=== PATIENT | male | born 1945 | race Caucasian/White ===

== ENCOUNTER 2019-03-30 08:36 | Day surgery (SDC) | payer MEDICARE, BC ==
[2019-03-23 16:03] LABS: BASOPHILS # (AUTO) 0.1 X10'3 (0-0.2); BASOPHILS % (AUTO) 1.2 % (0-1); EOSINOPHILS # (AUTO) 0.1 X10'3 (0-0.9); EOSINOPHILS % (AUTO) 1.6 % (0-6); LYMPHOCYTES # (AUTO) 1.8 X10'3 (1.1-4.8); LYMPHOCYTES % (AUTO) 23.4 % (21-51); MEAN CORPUSCULAR HEMOGLOBIN 31.6 PG (27.0-31.0); MEAN CORPUSCULAR HGB CONC 33.8 g/dL (33.0-36.5); MEAN CORPUSCULAR VOLUME 93.7 FL (78-98); MEAN PLATELET VOLUME 8.2 FL (7.4-10.4); MONOCYTES # (AUTO) 1.1 X10'3 (0-0.9); MONOCYTES % (AUTO) 14.9 % (2-12); NEUTROPHILS # (AUTO) 4.5 X10'3 (1.8-7.7); NEUTROPHILS % (AUTO) 58.9 % (42-75); PRE OP HEMATOCRIT 44.5 % (42.0-52.0); PRE OP PLATELET COUNT 317 X10'3 (140-440); RED BLOOD COUNT 4.75 X10'6 (4.70-6.10); RED CELL DISTRIBUTION WIDTH 14.9 % (11.5-14.5)
[2019-03-23 16:20] LABS: ALBUMIN 3.5 G/DL (3.4-5.0); ALBUMIN/GLOBULIN RATIO 0.7 (1.1-1.5); ALKALINE PHOSPHATASE 66 IU/L (46-116); BLOOD UREA NITROGEN 29 MG/DL (7-18); BUN/CREATININE RATIO 16.9 (5.4-32.0); CALCIUM 8.3 MG/DL (8.5-10.1); CHLORIDE 106 MMOL/L (99-107); CREATININE 1.72 MG/DL (0.60-1.10); PRE OP ALT 40 U/L (30-65); PRE OP ANION GAP 8 (8-16); PRE OP AST 28 U/L (10-37); PRE OP BILIRUB, TOTAL 0.4 MG/DL (0.0-1.0); PRE OP GLUCOSE 91 MG/DL (70-104); PRE OP POTASSIUM 3.7 MMOL/L (3.4-5.1); PRE OP SODIUM 139 MMOL/L (135-145); TOTAL PROTEIN 8.2 G/DL (6.4-8.2); eGFR 39 ML/MIN
[~2019-03-30] VITALS: Ht 188 cm; Wt 97.3 kg
[~2019-03-30 08:36] MED LIST: CLINDAMYCIN/D5W 900mg/50ml 50 ML IV ONE; DOXA1TAB2 PO; LEVO150T8 PO; LIDOcaine 0.5% (5mg/ml) 50ml vial ONE; LOSA25TA41 PO; famotidine 20mg tablet PO ONE; ringers solution, lacted 1,000 ML IV SCH
[2019-03-30] MEDS ORDERED: ESOM20CA PO (09:13)
[2019-03-30] MEDS ORDERED: BUPIVAcaine/PF 2.5mg/ml (0.25%) 10ml vial ONE (09:48)
[2019-03-30 10:09] VITALS: BP 156/78
[2019-03-30] MEDS ORDERED: ringers solution, lacted 1,000 ML IV SCH (10:09)
[2019-03-30] MEDS ORDERED: morphine 4 MG/ML inj SYRINge IV PRN ×2 (10:10)
[2019-03-30] MEDS ORDERED: ondansetron/PF 4mg/2ml inj IV PRN (10:10)
[2019-03-30] MEDS ORDERED: proCHLORperazine 10 MG/2 ml inj IV PRN (10:10)
[2019-03-30 10:16] VITALS: BP 156/78
[2019-03-30] MEDS ORDERED: fentaNYL/PF 50MCG/1 ML 2ML syringe ONE (10:23)
[2019-03-30] MEDS ORDERED: midazolam 2 mg/2 ml injection ONE (10:24)
[2019-03-30 11:05] VITALS: BP 172/90
--- NOTE | 2019-03-30 11:05 | NUR ---
ADMITTED TO PACU FROM OR ACCOMPANIED BY ANESTHESIA. INTIAL PHYSICAL ASSESSMENT DONE AND RECORDED. REPORT RECEIVED FROM ANESTHESIA.
[2019-03-30 11:15] VITALS: BP 176/68
[2019-03-30 11:25] VITALS: BP 166/70
[2019-03-30 11:35] VITALS: BP 160/72
--- NOTE | 2019-03-30 11:45 | NUR ---
DISCHARGE CRITERIA MET, DISCHARGE INSTRUCTIONS GIVEN, DEMONSTRATES VERBAL UNDERSTANDING. DISCHARGED HOME IN GOOD CONDITION.
== END 2019-03-30 11:45 | disposition home or self-care (01) ==
LOC: PAS 08:36
PROVIDERS: ATTEND Orthopaedic Surgery Hand Surgery
DX: M65.841 Other synovitis and tenosynovitis, right hand (principal); I10 Essential (primary) hypertension; E03.9 Hypothyroidism, unspecified; M19.90 Unspecified osteoarthritis, unspecified site; Z88.8 Allergy status to other drugs, medicaments and biological substances; Z79.899 Other long term (current) drug therapy; Z87.891 Personal history of nicotine dependence; Z72.89 Other problems related to lifestyle; Z98.890 Other specified postprocedural states; Z88.0 Allergy status to penicillin
CPT/HCPCS: 25118; 36415; 80053; 82948; 85025; 93005; J2001; J2250; J3010; J3490; 88305; A4215; J7120

== ENCOUNTER 2023-03-16 23:04 | Inpatient (IN) | payer MEDICARE, BC ==
[~2023-03-16] VITALS: Ht 188 cm; Wt 121.6 kg
[~2023-03-16 23:04] MED LIST changes: -CLINDAMYCIN/D5W 900mg/50ml 50 ML IV ONE; +ESOM20CA PO; -LIDOcaine 0.5% (5mg/ml) 50ml vial ONE; -famotidine 20mg tablet PO ONE; -ringers solution, lacted 1,000 ML IV SCH
[2023-03-17] VITALS (8 sets, daily range): BP systolic 131–178; BP diastolic 59–83; PULSE 68–76; RESP 12–18; TEMP 97.4–98.2; O2SAT 93–95
[2023-03-17] MEDS ORDERED: potassium Cl 40MEQ/1/2NS 520ml 520 ML IV PRN (00:10)
[2023-03-17] MEDS ORDERED: magnesium Cl slow-release 64mg tablet PO PRN (00:10)
[2023-03-17] MEDS ORDERED: ondansetron/PF 4mg/2ml inj IV PRN (00:10)
[2023-03-17] MEDS ORDERED: magnesium 4gm in 100ml NS 100 ML IV PRN (00:10)
[2023-03-17] MEDS ORDERED: potassium Cl 20 mEq SR tablet PO PRN ×2 (00:10)
[2023-03-17] MEDS ORDERED: mag hydrox/Alum hydrox/simeth 30ml oral suspension PO PRN (00:10)
[2023-03-17] MEDS ORDERED: acetaminophen 325mg tablet PO PRN (00:10)
[2023-03-17] MEDS ORDERED: morphine 2 MG/ML inj. syringe IV PRN ×2 (00:10)
[2023-03-17] MEDS ORDERED: magnesium 2GM in 50ml NS 50 ML IV PRN (00:10)
[2023-03-17] MEDS ORDERED: magnesium hydroxide 30ml (MOM) UD suspension PO PRN (00:10)
[2023-03-17 01:00] LABS: APTT 23 SECONDS (22-32); PROTHROMBIN TIME 11.2 SECONDS (9.0-12.0)
[2023-03-17 01:02] LABS: ALANINE AMINOTRANSFERASE 50 U/L (12-78); ALBUMIN 3.8 G/DL (3.4-5.0); ALBUMIN/GLOBULIN RATIO 1.2 (1.1-1.5); ALKALINE PHOSPHATASE 98 IU/L (46-116); ANION GAP 9 (8-16); ASPARTATE AMINO TRANSFERASE 31 U/L (10-37); BILIRUBIN,TOTAL 0.7 MG/DL (0.1-1.0); BLOOD UREA NITROGEN 21 MG/DL (7-18); BUN/CREATININE RATIO 16.2 (10.0-20.0); CHLORIDE 105 MMOL/L (99-107); GLUCOSE 124 MG/DL (70-104); SODIUM 139 MMOL/L (135-145); TOTAL CARBON DIOXIDE 25.2 MMOL/L (24-32); TOTAL PROTEIN 7.1 G/DL (6.4-8.2); eCRCL 54 ML/MIN; eGFR 53 ML/MIN
[2023-03-17 01:05] LABS: RED CELL DISTRIBUTION WIDTH 13.4 % (11.5-14.5)
[2023-03-17 01:08] LABS: BASOPHILS # (AUTO) 0.2 X10'3 (0-0.2); BASOPHILS % (AUTO) 1.3 % (0-1); EOSINOPHILS # (AUTO) 0.2 X10'3 (0-0.9); EOSINOPHILS % (AUTO) 1.5 % (0-6); HEMATOCRIT 47.5 % (42.0-52.0); HEMOGLOBIN 15.9 g/dl (14.0-17.9); LYMPHOCYTES # (AUTO) 2.2 X10'3 (1.1-4.8); LYMPHOCYTES % (AUTO) 18.3 % (21-51); MEAN CORPUSCULAR HEMOGLOBIN 32.1 PG (27.0-31.0); MEAN CORPUSCULAR HGB CONC 33.5 g/dL (33.0-36.5); MEAN PLATELET VOLUME 9.1 FL (7.4-10.4); MONOCYTES # (AUTO) 1.2 X10'3 (0-0.9); MONOCYTES % (AUTO) 10.3 % (2-12); NEUTROPHILS # (AUTO) 8.3 X10'3 (1.8-7.7); NEUTROPHILS % (AUTO) 68.6 % (42-75); PLATELET COUNT 170 X10'3 (140-440); RED BLOOD COUNT 4.94 X10'6 (4.70-6.10); WHITE BLOOD COUNT 12.2 X10'3 (4.5-11.0)
[2023-03-17 01:18] LABS: BILIRUBIN,URINE NEGATIVE (Neg); CLARITY,URINE CLEAR (Clear); COLOR,URINE YELLOW (Yellow); GLUCOSE, URINE NEGATIVE (Neg); KETONES,URINE NEGATIVE (Neg); LEUKOCYTE ESTERASE ,URINE NEGATIVE (Neg); NITRITES, URINE NEGATIVE (Neg); OCCULT BLOOD,URINE NEGATIVE (Neg); PROTEIN,URINE NEGATIVE (Neg); UROBILINOGEN,URINE 0.2 E.U/dL (0.2-1.0)
[2023-03-17 01:25] LABS: UA COLLECTION TYPE URINAL
--- NOTE | 2023-03-17 01:40 | NUR ---
I have reviewed and agree with the assessment completed by OLESYA Laguerre.
[2023-03-17 06:09] LABS: MAGNESIUM 1.9 MG/DL (1.5-2.4)
[2023-03-17] MEDS: K and/or MAG REPLACEMENT MC SCH ×2 (06:23→20:00)
[2023-03-17] MEDS ORDERED: levoTHYROXINE 100mcg tablet PO SCH (07:00)
--- NOTE | 2023-03-17 07:23 | NUR ---
Patient in room ED 13. I have received report from Summer in the ED and had the opportunity to ask questions and assume patient care.
[2023-03-17] MEDS: heparin, porcine 5000 units/ml vial SQ SCH ×2 (07:26→20:34)
[2023-03-17] MEDS: docusate sod 100mg capsule PO SCH ×2 (07:26→20:29)
--- NOTE | 2023-03-17 07:26 | NUR ---
COLACE AND HEPARIN NON ADMIN THIS AM D/T PT POTENTIAL TO GO TO SURGERY. PER OR ORTHO SURGEON IS HERE TODAY.
[2023-03-17] MEDS ORDERED: pantoprazole 40mg Tablet.DR PO SCH (07:30)
[2023-03-17] MEDS ORDERED: losartan 50mg tablet PO SCH (08:00)
--- NOTE | 2023-03-17 15:59 | NUR ---
student medication administration was done under the direct supervision of the instructor
--- NOTE | 2023-03-17 16:00 | NUR ---
Student documentation: I have reviewed all interventions, assessments performed and documentation by SN @ [facility].
--- NOTE | 2023-03-17 16:47 | NUR ---
Re: Hernán, [id number], patient asking for ibuprofen for pain management, please advise Anuradha
[2023-03-17] MEDS ORDERED: oxyCODONE/APAP 5-325mg tablet PO PRN (16:50)
[2023-03-17] MEDS ORDERED: pantoprazole 40mg Tablet.DR PO PRN (17:30)
--- NOTE | 2023-03-17 18:22 | NUR ---
Problems reprioritized. Patient report given, questions answered & plan of care reviewed with
[2023-03-17] MEDS: doxazosin mesylate 2mg tablet PO SCH (20:34)
[2023-03-17] MEDS ORDERED: DOXAZOSIN MESYLATE 1 MG PO SCH (21:00)
[2023-03-18] VITALS (22 sets, daily range): BP systolic 109–150; BP diastolic 53–95; PULSE 55–78; RESP 12–17; TEMP 98–98.4; O2SAT 90–98
--- NOTE | 2023-03-18 06:09 | NUR ---
STRAPPING MACHINE OPERATOR documentation: I have reviewed and agree with all interventions, assessments performed and documented by Logan.
[2023-03-18] MEDS: docusate sod 100mg capsule PO SCH ×2 (07:32→20:05)
[2023-03-18] MEDS: levoTHYROXINE 75mcg tablet PO SCH (07:32)
[2023-03-18] MEDS ORDERED: losartan 25mg tablet PO SCH (08:00)
[2023-03-18 08:09] LABS: BASOPHILS # (AUTO) 0.1 X10'3 (0-0.2); BASOPHILS % (AUTO) 1.2 % (0-1); EOSINOPHILS # (AUTO) 0.3 X10'3 (0-0.9); HEMATOCRIT 43.6 % (42.0-52.0); HEMOGLOBIN 14.6 g/dl (14.0-17.9); LYMPHOCYTES # (AUTO) 1.8 X10'3 (1.1-4.8); LYMPHOCYTES % (AUTO) 19.9 % (21-51); MEAN CORPUSCULAR HEMOGLOBIN 32.2 PG (27.0-31.0); MEAN CORPUSCULAR HGB CONC 33.4 g/dL (33.0-36.5); MEAN CORPUSCULAR VOLUME 96.4 FL (78-98); MEAN PLATELET VOLUME 8.2 FL (7.4-10.4); MONOCYTES # (AUTO) 1.1 X10'3 (0-0.9); MONOCYTES % (AUTO) 11.5 % (2-12); NEUTROPHILS # (AUTO) 5.9 X10'3 (1.8-7.7); NEUTROPHILS % (AUTO) 64.4 % (42-75); PLATELET COUNT 240 X10'3 (140-440); RED BLOOD COUNT 4.52 X10'6 (4.70-6.10); RED CELL DISTRIBUTION WIDTH 13.5 % (11.5-14.5); WHITE BLOOD COUNT 9.2 X10'3 (4.5-11.0)
[2023-03-18 08:33] LABS: ALANINE AMINOTRANSFERASE 46 U/L (12-78); ALBUMIN 3.1 G/DL (3.4-5.0); ALBUMIN/GLOBULIN RATIO 0.9 (1.1-1.5); ALKALINE PHOSPHATASE 95 IU/L (46-116); ANION GAP 10 (8-16); ASPARTATE AMINO TRANSFERASE 21 U/L (10-37); BILIRUBIN,TOTAL 0.4 MG/DL (0.1-1.0); BLOOD UREA NITROGEN 25 MG/DL (7-18); CALCIUM 8.9 MG/DL (8.5-10.1); CHLORIDE 107 MMOL/L (99-107); CREATININE 1.25 MG/DL (0.60-1.10); GLUCOSE 117 MG/DL (70-104); POTASSIUM 3.9 MMOL/L (3.5-5.1); SODIUM 140 MMOL/L (135-145); TOTAL CARBON DIOXIDE 22.7 MMOL/L (24-32); TOTAL PROTEIN 6.7 G/DL (6.4-8.2); eCRCL 57 ML/MIN; eGFR 56 ML/MIN
[2023-03-18] MEDS ORDERED: midazolam 1 mg/ML 2ml injection ONE (13:22)
[2023-03-18] MEDS ORDERED: fentaNYL/PF 50MCG/1 ML 2ML syringe ONE (13:22)
[2023-03-18] MEDS ORDERED: propofol inj 20 ML IV ONE (13:22)
[2023-03-18] MEDS ORDERED: sevoflurane 250ml liquid IH ONE (13:23)
[2023-03-18] MEDS ORDERED: ROPIVAcaine 0.5% (5mg/ml) 30ml vial ONE ×3 (13:24→15:03)
[2023-03-18] MEDS ORDERED: ceFAZolin 1000mg inj ONE ×2 (13:46→13:47)
[2023-03-18] MEDS ORDERED: diphenhydrAMINE 25mg capsule PO PRN ×2 (14:00)
[2023-03-18] MEDS ORDERED: ondansetron/PF 4mg/2ml inj IV PRN ×2 (14:00→14:35)
[2023-03-18] MEDS ORDERED: acetaminophen 325mg tablet PO PRN (14:00)
[2023-03-18] MEDS ORDERED: naloxone 0.4 mg/ml inj IV PRN (14:00)
[2023-03-18] MEDS ORDERED: magnesium hydroxide 30ml (MOM) UD suspension PO PRN (14:00)
[2023-03-18] MEDS ORDERED: bisacodyl 10mg suppository rectal RC PRN (14:00)
[2023-03-18] MEDS ORDERED: oxyCODONE IR 5mg (immed. release) tablet PO PRN ×2 (14:00)
--- NOTE | 2023-03-18 14:00 | NUR ---
I have reviewed and agree with interventions, assessments, and documentation by Regine Kumar LVN.
[2023-03-18] MEDS ORDERED: morphine 2 MG/ML inj. syringe IV PRN (14:35)
[2023-03-18] MEDS ORDERED: morphine 4 MG/ML inj SYRINge IV PRN (14:35)
[2023-03-18] MEDS ORDERED: proCHLORperazine 10 MG/2 ml inj IV PRN (14:35)
[2023-03-18] MEDS ORDERED: ringers solution, lacted 1,000 ML IV SCH (14:35)
[2023-03-18] MEDS ORDERED: dexamethasone sod phosphate 4mg/ml inj. ONE (15:07)
[2023-03-18] MEDS ORDERED: ondansetron/PF 4mg/2ml inj ONE (15:07)
--- NOTE | 2023-03-18 15:24 | NUR ---
Received from OR via HOSPITAL BED TO RR 6, accompanied by Anesthesiologist DR GORDON and report given by Anesthesiolgist. PT PRESENT WITH PIV 20G LEFT AC, 20G RIGHT HAND, SPO2 95% 6L MASK, BILATERAL KNEE DERMABON, APTICOAT DRESSING, ISSLAND DRERSSING AND DEANA WRAP WITH BILATERAL KNEE IMMOBILIZER. LR RUNNING AT 100MLS/HR, VSS. Addendum: 03/18/23 at 1549 by Brandy Simeon - KELSI RN Amended: Links added.
[2023-03-18] MEDS ORDERED: ROPIVAcaine 0.5% (5mg/ml) 30ml vial IJ ONE (15:29)
--- NOTE | 2023-03-18 16:54 | NUR ---
Report called to receiving nurse JILL DOLAN. Transferred via HOSPITAL BED BACK TO ROOM 401 WHERE PT HAS HIS PERSONAL BELONGINGS. BED IN LOW LOCKED POSITION WITH CALL LIGHT IN REACH. PT'S CHART TALEN TO NURSES STATION. I GAVE PT'S A SILVER COLOR RING THAT BELINGED TO PT. Special Issues communicated to receiving nurse. Addendum: 03/18/23 at 1712 by Brandy De Los Santos RN RN Amended: Links added.
--- NOTE | 2023-03-18 17:44 | NUR ---
PATIENT RECEIVED FROM OR. STABLE. EBL 100 ML/HR. VITAL SIGNS STABLE. BOTH LEGS IN IMMOBILIZERS SET AT 0. PATIENT PAIN 3/10. DERMABOND, ISLAND DRESSING, AND DEANA WRAPPED. DRESSING INTACT. WILL REPORT TO NIGHT NURSE.
[2023-03-18] MEDS: K and/or MAG REPLACEMENT MC SCH (20:00)
[2023-03-18] MEDS ORDERED: vancomycin/NS 1 GM ADD-VANTAGE 250 ML IV SCH (20:00)
[2023-03-18] MEDS: heparin, porcine 5000 units/ml vial SQ SCH (20:05)
[2023-03-18] MEDS: potassium cl 20mEq in 1/2 NS 1,000 ML IV SCH ×2 (20:05→22:00)
[2023-03-18] MEDS: doxazosin mesylate 2mg tablet PO SCH (20:05)
[2023-03-18] MEDS: ceFAZolin/D5W- 1GM premix 50 ML IV SCH (20:06)
[2023-03-18] MEDS: sennosides 8.6mg tablet PO SCH (21:00)
[2023-03-19] VITALS (7 sets, daily range): BP systolic 124–150; BP diastolic 50–68; PULSE 58–75; RESP 16–20; TEMP 97.2–98.8; O2SAT 91–98
[2023-03-19] MEDS: ceFAZolin/D5W- 1GM premix 50 ML IV SCH (04:15)
[2023-03-19] MEDS: potassium cl 20mEq in 1/2 NS 1,000 ML IV SCH ×2 (06:00→12:47)
--- NOTE | 2023-03-19 06:41 | NUR ---
Powder packs changed, immobilizers x2 present, pedal pulses x2 present. Patient reports 0/10 pain. Prior education on pain management and what we have available for this pt.
--- NOTE | 2023-03-19 06:41 | NUR ---
I have received report from KELSI Jordan and had the opportunity to ask questions and assume patient care. NO distress at this time.
[2023-03-19 07:33] LABS: BASOPHILS % (AUTO) 0.2 % (0-1); EOSINOPHILS % (AUTO) 0 % (0-6); HEMATOCRIT 42.2 % (42.0-52.0); HEMOGLOBIN 14.1 g/dl (14.0-17.9); LYMPHOCYTES # (AUTO) 1.2 X10'3 (1.1-4.8); LYMPHOCYTES % (AUTO) 8.5 % (21-51); MEAN CORPUSCULAR HEMOGLOBIN 31.9 PG (27.0-31.0); MEAN CORPUSCULAR HGB CONC 33.4 g/dL (33.0-36.5); MEAN CORPUSCULAR VOLUME 95.6 FL (78-98); MEAN PLATELET VOLUME 8.4 FL (7.4-10.4); MONOCYTES # (AUTO) 1.3 X10'3 (0-0.9); MONOCYTES % (AUTO) 9.3 % (2-12); NEUTROPHILS # (AUTO) 11.9 X10'3 (1.8-7.7); PLATELET COUNT 243 X10'3 (140-440); RED BLOOD COUNT 4.42 X10'6 (4.70-6.10); RED CELL DISTRIBUTION WIDTH 13.6 % (11.5-14.5); WHITE BLOOD COUNT 14.5 X10'3 (4.5-11.0)
[2023-03-19 07:42] LABS: ALANINE AMINOTRANSFERASE 45 U/L (12-78); ALBUMIN 3.1 G/DL (3.4-5.0); ALBUMIN/GLOBULIN RATIO 0.9 (1.1-1.5); ALKALINE PHOSPHATASE 93 IU/L (46-116); ANION GAP 9 (8-16); ASPARTATE AMINO TRANSFERASE 31 U/L (10-37); BILIRUBIN,TOTAL 0.3 MG/DL (0.1-1.0); BLOOD UREA NITROGEN 21 MG/DL (7-18); BUN/CREATININE RATIO 17.6 (10.0-20.0); CALCIUM 8.6 MG/DL (8.5-10.1); CHLORIDE 107 MMOL/L (99-107); CREATININE 1.19 MG/DL (0.60-1.10); GLUCOSE 112 MG/DL (70-104); MAGNESIUM 1.9 MG/DL (1.5-2.4); POTASSIUM 4.1 MMOL/L (3.5-5.1); SODIUM 141 MMOL/L (135-145); TOTAL PROTEIN 6.7 G/DL (6.4-8.2); eCRCL 59 ML/MIN; eGFR 59 ML/MIN
[2023-03-19] MEDS: K and/or MAG REPLACEMENT MC SCH ×2 (08:00→20:00)
[2023-03-19] MEDS: heparin, porcine 5000 units/ml vial SQ SCH ×2 (09:21→20:34)
[2023-03-19] MEDS: docusate sod 100mg capsule PO SCH ×2 (09:22→20:33)
[2023-03-19] MEDS: levoTHYROXINE 75mcg tablet PO SCH (09:22)
[2023-03-19 13:33] LABS: THYROID STIMULATING HORMONE 10.63 ulU/ml (0.34-4.50)
--- NOTE | 2023-03-19 16:10 | NUR ---
PRESSURE ULCER EDUCATION: DEFINITION: A pressure ulcer is an area of skin that breaks down when you stay in one position too long. The constant pressure against the skin reduces the blood flow to that area and the affected tissue dies. CAUSES: "Being bedridden or in a wheelchair "Fragile skin "Having a chronic condition, such as diabetes or vascular disease "Inability to move certain parts of your body without assistance "Older age "Incontinence of urine or stool SYMPTOMS: "A reddened area that DOES NOT turn white when pressed on - this can be the beginning of a pressure ulcer "A blister, deep sore or a crater - these can be advanced pressure ulcers FIRST AID: "Relieve the pressure on this area "Keep the area clean and dry "Call your primary doctor if you see any of the above symptoms "DO NOT massage the area "DO NOT use a donut shaped or ring shaped pillow- these actually interfere with the blood flow and cause complications PREVENTION: "Check for pressure ulcers everyday "Change position at least every two hours to relieve pressure "Use items that help relieve pressure- pillows, sheepskin, foam padding, and powders. "Keep skin clean and dry "Eat healthy well balanced meals "Exercise daily IF YOU SEE ANY OF THESE SYMPTOMS WHILE IN THE HOSPITAL - TELL YOUR NURSE IMMEDIATELY. IF YOU SEE ANY OF THESE SYMPTOMS WHILE AT HOME OR HAVE ANY QUESTIONS OR CONCERNS ABOUT PRESSURE ULCERS - CALL YOUR PRIMARY DOCTOR IMMEDIATELY. Addendum: 03/19/23 at 1610 by Maral Velazquez LVN Amended: Links added.
--- NOTE | 2023-03-19 18:00 | NUR ---
I have reviewed and agree with interventions, assessments, and documentation by Claudia Kumar LVN.
--- NOTE | 2023-03-19 18:30 | NUR ---
Problems reprioritized. Patient report given, questions answered & plan of care reviewed with OLESYA Rebollar. No distress at this time.
--- NOTE | 2023-03-19 18:39 | NUR ---
Patient requested to go to [facility] rehab for post care. Relayed to night nurse to relay to AM in re: to this for case management.
[2023-03-19] MEDS: doxazosin mesylate 2mg tablet PO SCH (20:33)
[2023-03-19] MEDS: sennosides 8.6mg tablet PO SCH (20:33)
[2023-03-20] MEDS: potassium cl 20mEq in 1/2 NS 1,000 ML IV SCH ×2 (04:29→06:00)
[2023-03-20 06:45] LABS: BASOPHILS # (AUTO) 0.1 X10'3 (0-0.2); BASOPHILS % (AUTO) 0.9 % (0-1); EOSINOPHILS # (AUTO) 0.2 X10'3 (0-0.9); EOSINOPHILS % (AUTO) 1.3 % (0-6); HEMATOCRIT 40.6 % (42.0-52.0); HEMOGLOBIN 13.7 g/dl (14.0-17.9); LYMPHOCYTES # (AUTO) 1.5 X10'3 (1.1-4.8); LYMPHOCYTES % (AUTO) 12.5 % (21-51); MEAN CORPUSCULAR HEMOGLOBIN 32.3 PG (27.0-31.0); MEAN CORPUSCULAR HGB CONC 33.7 g/dL (33.0-36.5); MEAN CORPUSCULAR VOLUME 95.7 FL (78-98); MEAN PLATELET VOLUME 7.9 FL (7.4-10.4); MONOCYTES # (AUTO) 1.5 X10'3 (0-0.9); MONOCYTES % (AUTO) 12.3 % (2-12); NEUTROPHILS # (AUTO) 8.9 X10'3 (1.8-7.7); PLATELET COUNT 221 X10'3 (140-440); RED BLOOD COUNT 4.24 X10'6 (4.70-6.10); RED CELL DISTRIBUTION WIDTH 13.5 % (11.5-14.5); WHITE BLOOD COUNT 12.3 X10'3 (4.5-11.0)
--- NOTE | 2023-03-20 06:53 | NUR ---
report to Charis DOLAN
[2023-03-20 07:04] LABS: ALANINE AMINOTRANSFERASE 80 U/L (12-78); ALBUMIN 2.9 G/DL (3.4-5.0); ALBUMIN/GLOBULIN RATIO 0.8 (1.1-1.5); ALKALINE PHOSPHATASE 90 IU/L (46-116); ANION GAP 9 (8-16); ASPARTATE AMINO TRANSFERASE 42 U/L (10-37); BILIRUBIN,TOTAL 0.4 MG/DL (0.1-1.0); BLOOD UREA NITROGEN 20 MG/DL (7-18); BUN/CREATININE RATIO 17.7 (10.0-20.0); CALCIUM 8.8 MG/DL (8.5-10.1); CHLORIDE 106 MMOL/L (99-107); CREATININE 1.13 MG/DL (0.60-1.10); GLUCOSE 144 MG/DL (70-104); MAGNESIUM 1.8 MG/DL (1.5-2.4); POTASSIUM 4.7 MMOL/L (3.5-5.1); SODIUM 138 MMOL/L (135-145); TOTAL CARBON DIOXIDE 23.1 MMOL/L (24-32); TOTAL PROTEIN 6.6 G/DL (6.4-8.2); eCRCL 63 ML/MIN; eGFR 63 ML/MIN
[2023-03-20] MEDS: levoTHYROXINE 75mcg tablet PO SCH (08:00)
[2023-03-20] MEDS: docusate sod 100mg capsule PO SCH ×2 (08:00→21:42)
[2023-03-20] MEDS: heparin, porcine 5000 units/ml vial SQ SCH ×2 (08:00→21:42)
[2023-03-20] MEDS: K and/or MAG REPLACEMENT MC SCH ×2 (08:00→20:00)
[2023-03-20 10:26] VITALS: RESP 15; O2SAT 96
[2023-03-20 19:00] VITALS: BP 168/71; PULSE 85; RESP 20; TEMP 97.9; O2SAT 93
[2023-03-20] MEDS: doxazosin mesylate 2mg tablet PO SCH (21:42)
[2023-03-20] MEDS: sennosides 8.6mg tablet PO SCH (21:43)
[2023-03-20 22:00] VITALS: BP 127/81; PULSE 85; RESP 18; TEMP 98.2; O2SAT 93
[2023-03-20 22:49] VITALS: RESP 18
--- NOTE | 2023-03-21 06:19 | NUR ---
report to Regine ENROLLMENT SPECIALIST
[2023-03-21 06:28] LABS: BASOPHILS # (AUTO) 0.2 X10'3 (0-0.2); BASOPHILS % (AUTO) 1.3 % (0-1); EOSINOPHILS # (AUTO) 0.3 X10'3 (0-0.9); EOSINOPHILS % (AUTO) 2.8 % (0-6); HEMATOCRIT 41.6 % (42.0-52.0); HEMOGLOBIN 14.2 g/dl (14.0-17.9); LYMPHOCYTES % (AUTO) 16.5 % (21-51); MEAN CORPUSCULAR HEMOGLOBIN 32.4 PG (27.0-31.0); MEAN CORPUSCULAR HGB CONC 34.1 g/dL (33.0-36.5); MEAN CORPUSCULAR VOLUME 95.2 FL (78-98); MEAN PLATELET VOLUME 7.8 FL (7.4-10.4); MONOCYTES # (AUTO) 1.7 X10'3 (0-0.9); NEUTROPHILS # (AUTO) 7.9 X10'3 (1.8-7.7); NEUTROPHILS % (AUTO) 65.4 % (42-75); PLATELET COUNT 272 X10'3 (140-440); RED BLOOD COUNT 4.38 X10'6 (4.70-6.10); RED CELL DISTRIBUTION WIDTH 13.6 % (11.5-14.5); WHITE BLOOD COUNT 12.1 X10'3 (4.5-11.0)
[2023-03-21 06:38] LABS: ALANINE AMINOTRANSFERASE 75 U/L (12-78); ALBUMIN 2.8 G/DL (3.4-5.0); ALBUMIN/GLOBULIN RATIO 0.7 (1.1-1.5); ALKALINE PHOSPHATASE 86 IU/L (46-116); ANION GAP 7 (8-16); ASPARTATE AMINO TRANSFERASE 35 U/L (10-37); BILIRUBIN,TOTAL 0.6 MG/DL (0.1-1.0); BLOOD UREA NITROGEN 17 MG/DL (7-18); BUN/CREATININE RATIO 15.5 (10.0-20.0); CALCIUM 8.9 MG/DL (8.5-10.1); CHLORIDE 104 MMOL/L (99-107); GLUCOSE 152 MG/DL (70-104); MAGNESIUM 1.9 MG/DL (1.5-2.4); POTASSIUM 4.2 MMOL/L (3.5-5.1); SODIUM 136 MMOL/L (135-145); TOTAL CARBON DIOXIDE 25.3 MMOL/L (24-32); TOTAL PROTEIN 6.8 G/DL (6.4-8.2); eCRCL 64 ML/MIN; eGFR 65 ML/MIN
[2023-03-21 07:10] VITALS: BP 149/72; PULSE 69; RESP 18; TEMP 98; O2SAT 94
[2023-03-21] MEDS: levoTHYROXINE 75mcg tablet PO SCH (08:00)
[2023-03-21] MEDS: K and/or MAG REPLACEMENT MC SCH (08:00)
[2023-03-21] MEDS: heparin, porcine 5000 units/ml vial SQ SCH (08:01)
[2023-03-21] MEDS: docusate sod 100mg capsule PO SCH (08:01)
--- NOTE | 2023-03-21 09:25 | NUR ---
Initial: Pt admit for left patella fracture with recent right knee tendon repair. Per EMR pt POD #3 s/p repair of bilateral quadriceps tendon. Pt has been on a regular diet and eating well, documented with average 86% PO intake of meals meeting 99% estimated energy needs and 100% estimated protein needs. LBM 11, documented as large. Pt receiving routine and PRN bowel care. No nutrition intervention implemented at this time. Will continue to follow and make recommendations as appropriate. Recommendations: 1) Continue regular diet 2) Monitor need for ONS 3) Routine bowel care 4) Weekly scaled weights Addendum: 03/21/23 at [address] Amended: Links added.
[2023-03-21 10:00] VITALS: BP 128/75; PULSE 77; RESP 16; TEMP 97.2; O2SAT 96
[2023-03-21] MEDS ORDERED: HEPA500017 SQ (12:09)
--- NOTE | 2023-03-21 15:02 | NUR ---
patient discharged to [facility]. [facility] [employer] [facility] [employer] Alert x4. LBM today. No c/o pain or discomfort. notified of discharge. Patient education provided. Packet sent by CM. IV removed from Left arm. All personal belongings left with patient.
--- NOTE | 2023-03-21 18:55 | NUR ---
LVNdocumentation: I have reviewed and agree with all interventions, assessments performed and documented by Regine DACOSTA.
== END 2023-03-21 14:45 | DRG 501 ==
LOC: ER 23:05 → ED HOLD 03-17 00:09 → EDBEDREQ 03-17 03:14 → ORTHO 4S 03-17 07:30
PROVIDERS: ADMIT Internal Medicine; ATTEND Family Medicine
PROC: BQ2 Imaging, Non-Axial Lower Bones, Computerized Tomography (CT Scan) (ICD-10-PCS; 2023-03-17)
PROC: 0LQM0ZZ Repair Left Upper Leg Tendon, Open Approach (ICD-10-PCS; 2023-03-18)
PROC: 0LQL0ZZ Repair Right Upper Leg Tendon, Open Approach (ICD-10-PCS; principal; 2023-03-18 13:23)
DX: S76.112A Strain of left quadriceps muscle, fascia and tendon, initial encounter (principal); S82.002A Unspecified fracture of left patella, initial encounter for closed fracture; S76.111A Strain of right quadriceps muscle, fascia and tendon, initial encounter; I10 Essential (primary) hypertension; E03.9 Hypothyroidism, unspecified; K21.9 Gastro-esophageal reflux disease without esophagitis; N40.0 Benign prostatic hyperplasia without lower urinary tract symptoms; W18.39XA Other fall on same level, initial encounter; Y93.89 Activity, other specified; Z79.899 Other long term (current) drug therapy; Y92.89 Other specified places as the place of occurrence of the external cause; Y99.8 Other external cause status; Z88.0 Allergy status to penicillin; Z88.8 Allergy status to other drugs, medicaments and biological substances
CPT/HCPCS: 36415; 71045; 73700; 73721; 80053; 81003; 83735; 84443; 85025; 85610; 85730; 86870; 86880; 86885; 86900; 86901; 87081; 97161; 97530; 99285; A4615; A4618; A6213; A6449; A7000; C1713; G0378; J0690; J1100; J1644; J2250; J2270; J2405; J2704; J2795; J3010; J3370; J3480; J7030; J7120; L1832